=== PATIENT | female | born 1980 | race Caucasian/White ===

== ENCOUNTER → 2020-04-17 13:13 | Outpatient (CLI) | payer OTHER, MEDICAID, SELFPAY ==
--- NOTE | 2020-04-17 13:17 | DI.US.S_ITS ---
PROCEDURE: US PELVIC COMPLETE INDICATIONS: irregular menses; heavy menses TECHNIQUE: Real-time scanning was performed of the pelvic organs, with image documentation. Additional endovaginal scanning was necessary due to incomplete visualization of the adnexal and endometrial structures by transabdominal scanning. COMPARISON: [facility], CR, XR CHEST 2V, 04/17/2020, 13:23. FINDINGS: Transabdominal scanning: Limited scanning through the kidneys shows no hydronephrosis. No pathologic free abdominal or pelvic fluid. Endovaginal scanning: Uterus: Uterus is normal in size at 7.9 x 3.6 x 4.8 cm. The endometrium measures 6 mm in combined thickness. Ovaries: The right ovary measures 2.8 x 2 x 1.5 cm. The left ovary measures 3.7 x 1.8 x 2.5 cm. The ovaries have a normal sonographic appearance. No adnexal masses are seen. Normal appearing arterial waveforms are confirmed to each ovary. IMPRESSION: No imaging explanation is found for this patient's presenting symptoms. Dictated by: Matheus Washington M.D. on 04/17/2020 at 13:52 Approved by: Matheus Washington M.D. on 04/17/2020 at 13:53
--- NOTE | 2020-04-17 13:17 | DI.RAD.S_ITS ---
PROCEDURE: XR CHEST 2V INDICATIONS: sob; smoking TECHNIQUE: 2 views of the chest were acquired. COMPARISON: None. FINDINGS: Surgical changes and devices: None. Lungs and pleura: Lungs are clear. No pleural effusions or pneumothorax. Mediastinum: Mediastinal contours are normal. Heart size is normal. Bones and chest wall: No suspicious bony abnormalities. Soft tissues appear unremarkable. IMPRESSION: No acute cardiopulmonary disease. Dictated by: Rc Pacheco [facility] Interpreted: Wayne Wang MD on 04/17/2020 at 13:52 Approved by: Wayne Wang M.D. on 04/17/2020 at 15:42
[2020-04-17 15:00] LABS: Add Manual Diff / Slide Review NO; Basophils Absolute Auto 100 /uL (0-100); Basophils Percent Auto 0.9 % (0-2); Eosinophils Absolute Auto 200 /uL (0-450); Eosinophils Percent Auto 2.9 % (2-4); Hematocrit 43.9 % (36-46); Hemoglobin 14.9 g/dL (12.0-16.0); Lymphocytes Absolute Auto 2200 /uL (1100-4500); Lymphocytes Percent Auto 35.9 % (25-40); Mean Corpuscular Hemoglobin 29.7 PG (26-34); Mean Corpuscular Volume 87.4 fL (80-100); Monocytes Absolute Auto 300 /uL (0-900); Monocytes Percent Auto 4.8 % (3-14); Neutrophils Absolute Auto 3400 /uL (1500-7000); Neutrophils Percent Auto 55.5 % (50-75); Platelet Count 235 X10^3/uL (150-400); Red Blood Cell Count 5.02 X10^6/uL (4.0-5.2); White Blood Cell Count 6.1 X10^3/uL (4.5-11.0)
[2020-04-17 15:11] LABS: Appearance Urine UA CLEAR; Bilirubin Urine UA NEGATIVE (NEGATIVE); Color Urine UA YELLOW; Glucose Urine UA NEGATIVE (Negative); Ketones Urine UA NEGATIVE (NEGATIVE); Leukocyte Esterase Urine UA NEGATIVE (NEGATIVE); Nitrite Urine UA NEGATIVE (Negative); Occult Blood Urine UA TRACE-LYSED (Negative); Protein Urine UA NEGATIVE (Negative); Urobilinogen Urine UA 0.2 E.U./dL (0.2)
[2020-04-17 15:31] LABS: Alanine Aminotransferase 10 IU/L (<35); Albumin 4.6 g/dL (3.5-5.0); Albumin Globulin Ratio 1.5 (1.0-2.8); Alkaline Phosphatase 48 U/L (38-126); Aspartate Aminotransferase 23 IU/L (14-36); BUN Creatinine Ratio 14.1 (6-22); Bilirubin Total 0.7 mg/dL (0.2-1.3); Blood Urea Nitrogen 10 mg/dL (7-17); Calcium 9.6 mg/dL (8.4-10.2); Carbon Dioxide 32 mmol/L (22-32); Chloride 103 mmol/L (98-107); Cholesterol 215 mg/dL (140-199); Estimated Glomerular Filt Rate > 60.0 mL/min (>60); Globulin 3.1 g/dL (1.7-4.1); Glucose 84 mg/dL (70-100); HDL Cholesterol 45 mg/dL (40-60); HEMOLYSIS < 15 (0-50); LDL Cholesterol Calculated 147 mg/dL (<100); Sodium 139 mmol/L (137-145); Total Protein 7.7 g/dL (6.3-8.2); Triglycerides 115 mg/dL (35-150)
[2020-04-17 15:43] LABS: pH Urine UA 7.5 (4.5-8.0)
== END ==
PROVIDERS: PCP Registered Nurse; Referring Provider Registered Nurse; Visit Provider Registered Nurse
DX: N92.6 Irregular menstruation, unspecified (principal); R06.02 Shortness of breath; F17.200 Nicotine dependence, unspecified, uncomplicated; Z82.49 Family history of ischemic heart disease and other diseases of the circulatory system; Z00.00 Encounter for general adult medical examination without abnormal findings
CPT/HCPCS: 36415; 71046; 76830; 76856; 80053; 80061; 81003; 85025

== ENCOUNTER 2021-07-22 04:29 | Emergency (ER) | payer OTHER, MEDICAID, SELFPAY ==
[2021-07-22 04:38] VITALS: BP 129/78; PULSE 93; RESP 18; TEMP 36.8; O2SAT 99; BMI 21.9
--- NOTE | 2021-07-22 04:43 | ED.BACK ---
HPI - Back Pain/Injury General Chief Complaint: Back Pain/Injury Stated Complaint: severe low back pain, covid + Time Seen by Provider: 07/22/21 04:38 History of Present Illness HPI Narrative: Patient is a 41-year-old female who presents with back pain. She states 1 week ago she was playing baseball she does not remember injuring herself. The last 3 days she has had increasing low back pain. She says those symptoms have actually improved her back pain has gotten worse. It is all across her low back does not radiating down her leg she denies any flank pain radiating to her abdomen. She says she took Tylenol yesterday for her back which seemed to help last night to go [place] which did not help either. She had headache fever and cough 2 days ago and tested positive for COVID 2 days ago at home. She is not vaccinated. Related Data Previous Rx's Medication Instructions Recorded buspirone 5 mg tablet 5 mg PO BID #90 tab 03/08/21 methocarbamol 750 mg tablet 750 mg PO Q8H PRN #14 tab 07/22/21 Allergies Allergy/AdvReac Type Severity Reaction Status Date / Time No Known Allergies Allergy Uncoded 03/08/21 16:16 Review of Systems Review of Systems Narrative: GENERAL: See HPI HEENT: Denies sinus pain, ear pain, sore throat, difficulty swallowing, neck pain RESPIRATORY: Denies dyspnea, cough, wheezing, hemoptysis, sputum. CARDIOVASCULAR: Denies chest pain, palpitations, orthopnea, edema GASTROINTESTINAL: Denies nausea, vomiting, abdominal pain, diarrhea, constipation, melena. : Denies dysuria, frequency, incontinence, hematuria, urinary retention, flank pain. MUSCULOSKELETAL: See HPI SKIN: No rash, no erythema, no pruritus NEUROLOGIC: Denies weakness, dizziness, headache, numbness, change in speech, confusion PSYCHIATRIC: No concerning psychosocial issues. 12 point review of systems is negative except for those stated above and HPI Patient History Medical History Adult general medical exam Anxiety Cervical cancer screening No pertinent family history Screening for breast cancer Screening for HPV (human papillomavirus) Surgical History No significant past surgical history Social History Smoking Status: Former smoker Smoking Status: Former smoker Exam Initial Vital Signs Initial Vital Signs: Vital Signs Temperature 98.2 F 07/22/21 04:38 Pulse Rate 93 H 07/22/21 04:38 Respiratory Rate 18 07/22/21 04:38 Blood Pressure 129/78 07/22/21 04:38 Pulse Oximetry 99 07/22/21 04:38 GENERAL: 41 female sitting in chair appears uncomfortable HEENT: Head atraumatic,EOMI, pupils reactive, face symmetric, [moist] mucous membranes CARDIOVASCULAR: Regular rate and rhythm without murmurs, rubs or gallops. RESPIRATORY: Breath sounds equal bilaterally, no wheezes rales or rhonchi. BACK: No vertebral tenderness no step-offs tender across bilateral lower lumbar EXTREMITIES: Normal range of motion, no clubbing or edema. Neurovascularly intact NEUROLOGICAL: Alert and oriented x4.Normal gait and speech. SKIN: Warm, dry, no laceration, no petechiae, no rashes or lesions. Course Orders Ordered: Discontinued Medications Diazepam (Diazepam 5 Mg Tablet) 5 mg PO NOW ONE Stop: 07/22/21 04:43 Last Admin: 07/22/21 04:52 Dose: 5 mg Documented by: SALENA Ketorolac Tromethamine (Ketorolac 30 Mg/Ml Vial) 30 mg IM NOW ONE Stop: 07/22/21 04:43 Last Admin: 07/22/21 04:51 Dose: 30 mg Documented by: SALENA MDM - Back Pain/Injury MDM Narrative Medical decision making narrative: Pain is significantly Toradol she is able lie down bed. At this time she feels ready able to go home. Pain certainly seems to musculoskeletal she has no real flank pain unlikely to be kidney stone. It is definitely worse with movement. Discharge Plan Departure Patient Disposition: Home Clinical Impression: Low back pain, COVID-19 Instructions: DI for Back Spasm, DI for COVID-19 (Suspected or Confirmed ) Activity Restrictions/Additional Instructions: *You have been diagnosed with back pain with COVID *What to do: At this time recommend heating pad, light stretches, weight activity no strenuous activity. COVID: Rest, quarantine fluids fever control *Continue to take medications as directed Ibuprofen 600 mg every 6-8 hours if needed for ifig-ma-vxurtroj pain Methocarbamol 750 mg every 8 hours if needed for muscle spasm--> SENT TO [facility] IN [place] *Follow up with your primary care provider in 2-3 days or call [phone] *Return to ER if you should have increasing back pain leg weakness or any new, worsening or concerning symptoms Prescriptions: New methocarbamol 750 mg tablet 750 mg PO Q8H PRN (Reason: muscle spasm) Qty: 14 0RF No Action buspirone 5 mg tablet 5 mg PO BID Qty: 90 0RF Rx Instructions: start with 5mg once daily and increase to 5mg BID after one week Referrals: Belkis Tejeda ARNP [Primary Care Provider] -
[2021-07-22] MEDS: KETOROLAC 30 MG/ML VIAL IM (04:51)
[2021-07-22] MEDS: diazePAM 5 MG TABLET PO (04:52)
== END 2021-07-22 05:12 | disposition home or self-care (01) ==
PROVIDERS: Emergency Provider Emergency Medicine; PCP Registered Nurse
DX: M54.50 Low back pain, unspecified (principal); U07.1 COVID-19
CPT/HCPCS: 96372; 99283; J1885

== ENCOUNTER 2024-10-25 10:11 | Emergency (ER) | payer OTHER, SELFPAY ==
[2024-10-25] VITALS (12 sets, daily range): BP systolic 121–186; BP diastolic 61–90; PULSE 63–79; RESP 10–18; TEMP 36.6; O2SAT 95–100; BMI 27.3
--- NOTE | 2024-10-25 10:18 | EKG_ITS ---
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
--- NOTE | 2024-10-25 10:18 | DI.RAD.S_ITS ---
PROCEDURE: XR CHEST 1V INDICATIONS: Chest Pain TECHNIQUE: One view of the chest was acquired. COMPARISON: None. FINDINGS: Surgical changes and devices: None. Lungs and pleura: Lungs are clear. No pleural effusions or pneumothorax. Mediastinum: Mediastinal contours appear normal. Heart size is normal. Bones and chest wall: No suspicious bony lesions. Overlying soft tissues appear unremarkable. IMPRESSION: No acute cardiopulmonary pathology. Dictated by: Fran Groves M.D. on 10/25/2024 at 11:05 Approved by: Fran Groves M.D. on 10/25/2024 at 11:05
[2024-10-25 10:50] LABS: Add Manual Diff / Slide Review NO; Basophils Absolute Auto 100 /uL (0-100); Basophils Percent Auto 1.2 % (0-2); Eosinophils Absolute Auto 300 /uL (0-450); Eosinophils Percent Auto 6.1 % (2-4); Hematocrit 40.7 % (36-46); Hemoglobin 14.1 g/dL (12.0-16.0); Lymphocytes Absolute Auto 2100 /uL (1100-4500); Lymphocytes Percent Auto 38.4 % (25-40); Mean Corpuscular HGB Conc 34.7 % (30-36); Mean Corpuscular Hemoglobin 29.1 PG (26-34); Mean Corpuscular Volume 83.9 fL (80-100); Monocytes Absolute Auto 300 /uL (0-900); Monocytes Percent Auto 4.7 % (3-14); Neutrophils Absolute Auto 2700 /uL (1500-7000); Neutrophils Percent Auto 49.6 % (50-75); Platelet Count 260 X10^3/uL (150-400); Red Blood Cell Count 4.85 X10^6/uL (4.0-5.2); Red Cell Distribution Width 13.4 % (11.6-14.8); White Blood Cell Count 5.5 X10^3/uL (4.5-11.0)
[2024-10-25 10:52] LABS: Prothrombin Time 11.4 SECONDS (9.4-12.5)
[2024-10-25 10:55] LABS: PTT Partial Thromboplastin Tim 36 SECONDS (25.1-36.5)
[2024-10-25 10:56] LABS: Alanine Aminotransferase 27 IU/L (<35); Albumin 4.8 g/dL (3.5-5.0); Albumin Globulin Ratio 1.6 (1.0-2.8); Alkaline Phosphatase 61 U/L (38-126); Aspartate Aminotransferase 28 IU/L (14-36); BUN Creatinine Ratio 14.1 (6-22); Bilirubin Total 0.6 mg/dL (0.2-1.3); Blood Urea Nitrogen 10 mg/dL (7-17); Calcium 9.3 mg/dL (8.4-10.2); Carbon Dioxide 26 mmol/L (22-32); Chloride 105 mmol/L (98-107); Creatine Kinase 76 U/L (30-135); Estimated Glomerular Filt Rate > 60 mL/min (>60); Glucose 101 mg/dL (70-99); HEMOLYSIS < 15 (0-50); Potassium 3.9 mmol/L (3.4-5.1); Sodium 139 mmol/L (137-145); Total Protein 7.8 g/dL (6.3-8.2)
[2024-10-25 11:08] LABS: Troponin I < 0.012 ng/mL (0.01-0.034)
--- NOTE | 2024-10-25 11:46 | ED_ITS ---
HPI - Chest Pain General Chief Complaint: Chest Pain Stated Complaint: Chest pain Time Seen by Provider: 10/25/24 10:50 Source: patient Mode of arrival: Ambulatory Limitations: no limitations History of Present Illness HPI narrative: Patient is a healthy 44-year-old female presenting today with right-sided low back pain. States that she denies any sort of injury woke up this morning which she was noticing some lower lumbar pain. Went to work felt nauseous denies any radiation to her abdomen. Occasionally has had some chest discomfort. She went to work and generally feels like something is wrong. She has no radiation down her leg she took Tylenol did not really seem to help. No prior history of kidney stones. She did have a ruptured appendicitis back in 2021 at [facility]. Related Data Previous Rx's Medication Instructions Recorded buspirone 5 mg tablet 5 mg PO BID #90 tabs 03/08/21 methocarbamol 750 mg tablet 750 mg PO Q8H PRN muscle spasm #14 07/22/21 tabs Allergies Allergy/AdvReac Type Severity Reaction Status Date / Time No Known Allergies Allergy Uncoded 03/08/21 16:16 Patient History Medical History Adult general medical exam Anxiety Cervical cancer screening No pertinent family history Screening for breast cancer Screening for HPV (human papillomavirus) Surgical History No significant past surgical history Social History Smoking Status: Current every day smoker Smoking Status: Current every day smoker tobacco type: vaping Exam Initial Vital Signs Initial Vital Signs: Vital Signs Pulse Rate 76 10/25/24 10:25 Respiratory Rate 10 L 10/25/24 10:25 Pulse Oximetry 100 10/25/24 10:25 GENERAL: Alert 44-year-old female HEENT: Head atraumatic,EOMI, pupils reactive, face symmetric, moist mucous membranes CARDIOVASCULAR: Regular rate and rhythm without murmurs, rubs or gallops. RESPIRATORY: Breath sounds equal bilaterally, no wheezes rales or rhonchi. ABDOMEN: Soft, nontender. Normoactive bowel sounds all 4 quadrants. No guarding or rebound. : No real CVA tenderness BACK: Mild right lower lumbar pain no vertebral tenderness no step-off EXTREMITIES: Normal range of motion, no clubbing or edema. Neurovascularly intact NEUROLOGICAL: Alert and oriented x4.Normal gait and speech. Cranial nerves II through XII grossly intact. SKIN: Warm, dry, no laceration, no petechiae, no rashes or lesions. Course Orders Ordered: ED Orders 10/25/24 10:18 XR chest 1V Stat EKG-12 Lead Stat 10/25/24 10:30 Complete Blood Count AUTO DIFF Stat Comprehensive Metabolic Panel Stat PTT Partial Thromboplastin Alan Stat Prothrombin Time INR Stat Troponin & CK Cardiac Panel Stat 10/25/24 11:52 CT kidney ureter bladder (KUB) Stat Discontinued Medications Ketorolac Tromethamine (Ketorolac 30 Mg/Ml Vial) 15 mg IV NOW ONE Stop: 10/25/24 11:53 Last Admin: 10/25/24 11:59 Dose: 15 mg Documented By: Vital Signs Vital signs: Vital Signs - 8 hr 10/25/24 11:00 10/25/24 11:00 10/25/24 11:30 Pulse Rate 72 Respiratory Rate 14 Blood Pressure 134/75 129/75 Pulse Oximetry 96 10/25/24 11:30 10/25/24 12:00 10/25/24 12:01 Pulse Rate 79 68 71 Respiratory Rate 15 14 16 Blood Pressure Pulse Oximetry 95 95 97 10/25/24 12:01 10/25/24 12:19 10/25/24 12:19 Pulse Rate 69 Respiratory Rate 15 Blood Pressure 160/78 H 144/76 H Pulse Oximetry 98 10/25/24 12:30 10/25/24 12:30 10/25/24 13:00 Pulse Rate 66 63 Respiratory Rate 12 12 Blood Pressure 135/61 Pulse Oximetry 98 97 10/25/24 13:00 10/25/24 13:30 10/25/24 13:30 Pulse Rate 63 Respiratory Rate 18 Blood Pressure 122/63 121/73 Pulse Oximetry 100 MDM - Chest Pain Lab Data 10/25/24 10:30 10/25/24 10:30 Labs: Lab Results 10/25/24 Range/Units 10:30 WBC 5.5 (4.5-11.0) X10^3/uL RBC 4.85 (4.0-5.2) X10^6/uL Hgb 14.1 (12.0-16.0) g/dL Hct 40.7 (36-46) % MCV 83.9 (80-100) fL MCH 29.1 (26-34) PG MCHC 34.7 (30-36) % RDW 13.4 (11.6-14.8) % Plt Count 260 (150-400) X10^3/uL Neut % (Auto) 49.6 L (50-75) % Lymph % (Auto) 38.4 (25-40) % [place] % (Auto) 4.7 (3-14) % Eos % (Auto) 6.1 H (2-4) % Baso % (Auto) 1.2 (0-2) % Neut # (Auto) 2700 (5658-6762) /uL Lymph # (Auto) 2100 (0539-5876) /uL [place] # (Auto) 300 (0-900) /uL Eos # (Auto) 300 (0-450) /uL Baso # (Auto) 100 (0-100) /uL PT 11.4 (9.4-12.5) SECONDS INR 1.0 (0.9-1.3) APTT 36 (25.1-36.5) SECONDS Sodium 139 (137-145) mmol/L Potassium 3.9 (3.4-5.1) mmol/L Chloride 105 (98-107) mmol/L Carbon Dioxide 26 (22-32) mmol/L BUN 10 (7-17) mg/dL Creatinine 0.71 (0.52-1.04) mg/dL Estimated GFR > 60 (>60) mL/min BUN/Creatinine Ratio 14.1 (6-22) Glucose 101 H (70-99) mg/dL Calcium 9.3 (8.4-10.2) mg/dL Total Bilirubin 0.6 (0.2-1.3) mg/dL AST 28 (14-36) IU/L ALT 27 (<35) IU/L Alkaline Phosphatase 61 (38-126) U/L Total Creatine Kinase 76 (30-135) U/L Troponin I < 0.012 (0.01-0.034) ng/mL Total Protein 7.8 (6.3-8.2) g/dL Albumin 4.8 (3.5-5.0) g/dL Globulin 3.0 (1.7-4.1) g/dL Albumin/Globulin Ratio 1.6 (1.0-2.8) Urine Dip Bedside Urine Glucose Negative Bedside Urine Bilirubin - Negative Bedside Urine Ketone - Negative Urine Specific [place] 1.005 Bedside Urine Occult Blood +/- Bedside Urine pH 6.0 Bedside Urine Protein - Negative Bedside Urine Urobilinogen - Negative Bedside Urine Nitrite - Negative Bedside Urine Leukocytes - Negative Esterase Imaging Data CT scan - abdomen/pelvis: Radiologist's Impression: PROCEDURE: CT KIDNEY URETER BLADDER (KUB) INDICATIONS: right flank pain TECHNIQUE: Axial sections were acquired from the lung bases to the pubic symphysis. Coronal and sagittal reformats were performed. For radiation dose reduction, the following was used: automated exposure control, adjustment of mA and/or kV according to patient size. COMPARISON: None. FINDINGS: Image quality: Diagnostic. Lower Chest: No significant findings. URINARY: Right Kidney: No stones or hydronephrosis. Right Ureter: No hydroureter. Left Kidney: No stones or hydronephrosis. Left Ureter: No hydroureter. Bladder: Normal wall thickness. No stones. ABDOMEN: Liver: No contour-deforming solid mass. Gallbladder: No radiopaque gallstones or wall thickening. Biliary ducts: No biliary dilation. Pancreas: No ductal dilation. Spleen: Size is within normal limits. Adrenal Glands: No adrenal nodules. Stomach and Bowel: Normal colonic caliber, without significant wall thickening. Appendix is surgically absent. Peritoneum: No abnormal intraperitoneal fluid. No free air. Ventral Wall: No hernia. Abdominal Nodes: No enlarged retroperitoneal or mesenteric lymph nodes. Vessels: Aorta and inferior vena cava are normal in size. PELVIS: Pelvic Organs: Unremarkable. Pelvic Nodes: Unremarkable. Miscellaneous: No inguinal hernias are seen. Bones: Unremarkable. IMPRESSION: 1. No renal stone, ureteral stone, hydronephrosis. 2. Remote appendectomy. 3. No acute abdominal process noted. Dictated by: Lior Akins M.D. on 10/25/2024 at 13:07 Approved by: Lior Akins M.D. on 10/25/2024 at 13:1 Chest x-ray: Radiologist's Impression: PROCEDURE: XR CHEST 1V INDICATIONS: Chest Pain TECHNIQUE: One view of the chest was acquired. COMPARISON: None. FINDINGS: Surgical changes and devices: None. Lungs and pleura: Lungs are clear. No pleural effusions or pneumothorax. Mediastinum: Mediastinal contours appear normal. Heart size is normal. Bones and chest wall: No suspicious bony lesions. Overlying soft tissues appear unremarkable. IMPRESSION: No acute cardiopulmonary pathology. Dictated by: Fran Groves M.D. on 10/25/2024 at 11:05 ECG Data Attestation: I personally reviewed and interpreted this ECG as follows: Prior ECG tracings: not available for review Interpretation: Normal sinus rhythm rate 73 ME interval 176 QRS [address] changes no T- wave inversions none prior to compare MDM Narrative Medical decision making narrative: Patient is a 44-year-old female presenting today with variety of symptoms. She reports that she was having some right-sided low back pain today denies any kind of injury it has no radiation to her abdomen or leg. He has had episode of nausea couple episodes of chest pain and sent here from the walk-in clinic. She does not really have flank tenderness was is mild lower right lumbar pain no vertebral tenderness. Abdomen is soft and nontender. She overall appears well Blood work has been reviewed No leukocytosis no anemia Electrolytes within normal limits no MARYLU Troponin negative Urinalysis negative for UTI no hematuria negative for EKGs reviewed no ischemia Chest x-ray reviewed no acute cardiopulmonary process Differential diagnosis nephrolithiasis sciatica, retrocecal appendicitis, musculoskeletal Patient received Toradol in the ED overall feeling better. At this time I suspect patient has a musculoskeletal pain known injury. CT noncontrast and show any evidence of nephrolithiasis blood work is reassuring no evidence of UTI. Her abdomen is soft and benign low suspicion for any kind of ovarian torsion. Blood pressure and vitals are within normal limits no concern for dissection at this time. At this time patient is feeling better recommend supportive care, return as needed Discharge Plan Departure Patient Disposition: Home Clinical Impression: Low back pain Instructions: DI for Low Back Pain Activity Restrictions/Additional Instructions: *You have been diagnosed with low back pain *What to do: Increase activity as tolerated. Blood work overall reassuring Light activity strongly encouraged *Continue to take medications as directed *Follow up with your primary care provider in 2-3 days or call [phone] *Return to ER if you should have should she engage numbness tingling weakness nausea vomiting [or] any new, worsening or concerning symptoms Prescriptions: No Action buspirone 5 mg tablet 5 mg PO BID Qty: 90 0RF Rx Instructions: start with 5mg once daily and increase to 5mg BID after one week methocarbamol 750 mg tablet 750 mg PO Q8H PRN (Reason: muscle spasm) Qty: 14 0RF Stand Alone Forms: Patient Portal/API/Survey
--- NOTE | 2024-10-25 11:52 | DI.CT.S_ITS ---
PROCEDURE: CT KIDNEY URETER BLADDER (KUB) INDICATIONS: right flank pain TECHNIQUE: Axial sections were acquired from the lung bases to the pubic symphysis. Coronal and sagittal reformats were performed. For radiation dose reduction, the following was used: automated exposure control, adjustment of mA and/or kV according to patient size. COMPARISON: None. FINDINGS: Image quality: Diagnostic. Lower Chest: No significant findings. URINARY: Right Kidney: No stones or hydronephrosis. Right Ureter: No hydroureter. Left Kidney: No stones or hydronephrosis. Left Ureter: No hydroureter. Bladder: Normal wall thickness. No stones. ABDOMEN: Liver: No contour-deforming solid mass. Gallbladder: No radiopaque gallstones or wall thickening. Biliary ducts: No biliary dilation. Pancreas: No ductal dilation. Spleen: Size is within normal limits. Adrenal Glands: No adrenal nodules. Stomach and Bowel: Normal colonic caliber, without significant wall thickening. Appendix is surgically absent. Peritoneum: No abnormal intraperitoneal fluid. No free air. Ventral Wall: No hernia. Abdominal Nodes: No enlarged retroperitoneal or mesenteric lymph nodes. Vessels: Aorta and inferior vena cava are normal in size. PELVIS: Pelvic Organs: Unremarkable. Pelvic Nodes: Unremarkable. Miscellaneous: No inguinal hernias are seen. Bones: Unremarkable. IMPRESSION: 1. No renal stone, ureteral stone, hydronephrosis. 2. Remote appendectomy. 3. No acute abdominal process noted. Dictated by: Lior Akins M.D. on 10/25/2024 at 13:07 Approved by: Lior Akins M.D. on 10/25/2024 at 13:11
[2024-10-25] MEDS: KETOROLAC 30 MG/ML VIAL 15 MG IV (11:59)
== END 2024-10-25 13:51 | disposition home or self-care (01) ==
PROVIDERS: Emergency Provider Emergency Medicine
DX: M54.50 Low back pain, unspecified (principal); R07.9 Chest pain, unspecified
CPT/HCPCS: 36415; 71045; 74176; 80053; 81003; 82550; 84484; 85025; 85610; 85730; 93005; 93010; 96374; 99284; J1885

== ENCOUNTER → 2025-01-27 07:27 | Outpatient (CLI) | payer OTHER, SELFPAY ==
[2025-01-27 08:42] LABS: Cholesterol 237 mg/dL (140-199); HDL Cholesterol 48 mg/dL (40-60); Triglycerides 128 mg/dL (35-150)
[2025-01-27 09:14] LABS: TSH w/ Reflex to FT4 2.63 uIU/mL (0.47-4.68)
== END ==
PROVIDERS: PCP Family Medicine; Referring Provider Family Medicine; Visit Provider Family Medicine
DX: E78.5 Hyperlipidemia, unspecified (principal); Z82.49 Family history of ischemic heart disease and other diseases of the circulatory system; R19.4 Change in bowel habit
CPT/HCPCS: 36415; 80061; 84443